=== PATIENT | female | born 1935 | race Caucasian/White ===

== ENCOUNTER 2017-06-27 17:29 | Emergency (ER) | payer MEDICARE, OTHER ==
[~2017-06-27] VITALS: Ht 167.6 cm; Wt 61.8 kg
[2017-06-27 17:39] VITALS: TEMP 97.7
[2017-06-27 18:16] LABS: BASO # 0.1 (0.0-0.2); BASO % 0.4 % (0.0-2.0); EOS # 0.5 (0.0-0.7); EOS % 4.1 % (0-4.0); GRAN # 7.5 (1.4-6.5); GRAN % 66.9 % (42.2-75.2); HEMATOCRIT 33.4 % (37.0-47.0); HEMOGLOBIN 11.1 g/dl (12.5-16.0); LYMPH # 2.4 (1.2-3.4); LYMPH % 21.3 % (20.0-51.0); MEAN CELL VOLUME 91 fl (80.0-100.0); MEAN CORPUSCULAR HEMOGLOBIN 30 pg (27.0-31.0); MEAN CORPUSCULAR HGB CONC 33 g/dl (33.0-37.0); MEAN PLATELET VOLUME 9.4 fl (7.4-10.4); MONO # 0.8 (0.1-0.6); PLATELET COUNT 203 K/mm3 (130-400); RED BLOOD COUNT 3.66 M/mm3 (4.10-5.30); REDCELL DISTRIBUTION WIDTH-CV 12.6 % (11.5-14.5)
[2017-06-27] MEDS ORDERED: DESYREL 50MG50 MG PO (18:23)
[2017-06-27] MEDS ORDERED: PRINIVIL10 MG PO (18:25)
[2017-06-27] MEDS ORDERED: CALCIUM 600/VIT1 CA1 PO (18:25)
[2017-06-27] MEDS ORDERED: LOPRESSOR 225 MG/TAB PO (18:26)
[2017-06-27] MEDS ORDERED: MULTI VITAMINS1 TAB PO (18:26)
[2017-06-27] MEDS ORDERED: ZYRTEC 10MG10 MG PO (18:26)
[2017-06-27 18:27] LABS: ALBUMIN 3.3 gm/dL (3.5-5.0); BILIRUBIN,TOTAL 0.5 mg/dL (0.0-1.0); C-REACTIVE PROTEIN 7.1 mg/dL (0.0-0.9); CALCIUM 8.7 mg/dL (8.4-10.2); CREATININE, serum 0.64 mg/dL (0.52-1.25); POTASSIUM 4.4 mmol/L (3.4-5.0); TOTAL PROTEIN 6.4 gm/dL (6.4-8.2)
[2017-06-27] MEDS ORDERED: MAPAP MULTI-SYM1 TA1 PO (18:27)
[2017-06-27] MEDS ORDERED: KLONOPIN 1MG1 MG PO (18:27)
[2017-06-27] MEDS ORDERED: ASPIRIN 32325 MG/TAB PO (18:27)
[2017-06-27] MEDS ORDERED: STOOL SOFTENER100 M2 PO (18:28)
[2017-06-27] MEDS ORDERED: NAPROSYN500 MG PO (18:28)
[2017-06-27] MEDS ORDERED: MELAT3MGTAB (18:28)
[2017-06-27 18:51] LABS: COLLECTION METHOD CLEAN CATCH
[2017-06-27 18:57] LABS: MUCOUS Present /lpf; PH 6 (5-8); SQUAMOUS EPITHELIAL 0-2 /hpf; URINE APPEARANCE Clear; URINE BACTERIA None Seen /hpf; URINE BILIRUBIN Negative (NEGATIVE); URINE BLOOD Negative (NEGATIVE); URINE COLOR Yellow; URINE GLUCOSE Negative (NEGATIVE); URINE KETONE Negative (NEGATIVE); URINE LEUKOCYTE ESTERASE Negative (NEGATIVE); URINE NITRATE Negative (NEGATIVE); URINE PROTEIN(semi-quant) Negative (NEGATIVE); URINE UROBILINOGEN Negative (NEGATIVE)
[2017-06-27 19:26] VITALS: BP 170/78; PULSE 72
[2017-06-27] MEDS ORDERED: NORCO 325 MG-51 TAB PO (19:29)
== END 2017-06-27 19:42 | disposition home or self-care (01) ==
LOC: COL.ER 17:29
PROVIDERS: Family Medicine
DX: R53.1 Weakness (principal); T40.4X5A Adverse effect of other synthetic narcotics, initial encounter; I10 Essential (primary) hypertension; Z96.651 Presence of right artificial knee joint
CPT/HCPCS: J2405; J7030; Q9967

== ENCOUNTER 2020-02-25 22:10 | Emergency (ER) | payer MEDICARE, OTHER ==
[~2020-02-25] VITALS: Ht 167.6 cm; Wt 65.9 kg
[~2020-02-25 22:10] MED LIST: ASPIRIN 32325 MG/TAB PO; CALCIUM 600/VIT1 CA1 PO; DESYREL 50MG50 MG PO; KLONOPIN 1MG1 MG PO; LOPRESSOR 225 MG/TAB PO; MAPAP MULTI-SYM1 TA1 PO; MELAT3MGTAB; MULTI VITAMINS1 TAB PO; NAPROSYN500 MG PO; NORCO 325 MG-51 TAB PO; PRINIVIL10 MG PO; STOOL SOFTENER100 M2 PO; ZYRTEC 10MG10 MG PO
[2020-02-25 22:19] VITALS: TEMP 97.5
[2020-02-25 22:57] LABS: BASO # 0.1 (0.0-0.2); BASO % 1.3 % (0.0-2.0); EOS # 0.3 (0.0-0.7); EOS % 5.2 % (0-4.0); GRAN % 48.3 % (42.2-75.2); HEMATOCRIT 41.7 % (37.0-47.0); HEMOGLOBIN 13.9 g/dl (12.5-16.0); INR 0.9 (0.8-3.0); LYMPH # 2.3 (1.2-3.4); LYMPH % 36.6 % (20.0-51.0); MEAN CELL VOLUME 94 fl (80.0-100.0); MEAN CORPUSCULAR HEMOGLOBIN 31 pg (27.0-31.0); MEAN CORPUSCULAR HGB CONC 33 g/dl (33.0-37.0); MEAN PLATELET VOLUME 9.3 fl (7.4-10.4); MONO # 0.5 (0.1-0.6); MONO % 8.4 % (1.7-9.3); PLATELET COUNT 211 K/mm3 (130-400); PROTHROMBIN TIME 10.2 SECONDS (9.7-12.8); RED BLOOD COUNT 4.44 M/mm3 (4.10-5.30); REDCELL DISTRIBUTION WIDTH-CV 12.3 % (11.5-14.5)
[2020-02-25 23:04] LABS: ALANINE AMINOTRANSFERASE 36 U/L (4-34); ALBUMIN 4.5 gm/dL (3.5-5.0); ALKALINE PHOSPHATASE 131 U/L (50-136); ANION GAP 9 mmol/L (7-16); AST,SGOT 40 U/L (15-37); BILIRUBIN,TOTAL 0.5 mg/dL (0.0-1.0); BLOOD UREA NITROGEN 16 mg/dL (7-17); CALCIUM 9.9 mg/dL (8.4-10.2); CARBON DIOXIDE 28 mmol/L (22-30); CHLORIDE 100 mmol/L (98-107); CREATINE KINASE 139 U/L (30-135); GLUCOSE 100 mg/dL (74-106); LIPASE 130 U/L (23-300); SODIUM 137 mmol/L (137-145); TOTAL PROTEIN 7.7 gm/dL (6.4-8.2)
[2020-02-25 23:17] LABS: TROPONIN-I < 0.012 ng/mL (0.000-0.035)
[2020-02-26 00:33] VITALS: BP 160/91; PULSE 62
== END 2020-02-26 00:42 | disposition home or self-care (01) ==
LOC: COL.ER 22:10
PROVIDERS: Emergency Medicine
DX: K21.9 Gastro-esophageal reflux disease without esophagitis (principal); I10 Essential (primary) hypertension; Z86.73 Personal history of transient ischemic attack (TIA), and cerebral infarction without residual deficits; Z90.710 Acquired absence of both cervix and uterus; Z88.0 Allergy status to penicillin; Z88.6 Allergy status to analgesic agent; Z88.8 Allergy status to other drugs, medicaments and biological substances; Z79.82 Long term (current) use of aspirin

== ENCOUNTER 2021-02-25 10:36 | Emergency (ER) | payer MEDICARE, OTHER ==
[~2021-02-25] VITALS: Ht 167.6 cm; Wt 63.6 kg
[2021-02-25 10:48] VITALS: TEMP 97
[2021-02-25 11:23] LABS: BASO # 0.1 K/mm3 (0.0-0.2); EOS # 0.3 K/mm3 (0.0-0.7); EOS % 5.2 % (0.0-4.0); GRAN # 3.7 K/mm3 (1.4-6.5); GRAN % 63.1 % (42.2-75.2); HEMATOCRIT 38.6 % (37.0-47.0); LYMPH # 1.3 K/mm3 (1.2-3.4); LYMPH % 22.3 % (20.0-51.0); MEAN CELL VOLUME 90 fl (80.0-100.0); MEAN CORPUSCULAR HEMOGLOBIN 30 pg (27-31); MEAN CORPUSCULAR HGB CONC 34 g/dl (33.0-37.0); MONO # 0.5 K/mm3 (0.1-0.6); MONO % 7.9 % (1.7-9.3); PLATELET COUNT 252 K/mm3 (130-400); RED BLOOD COUNT 4.29 M/mm3 (4.10-5.30)
[2021-02-25 11:40] LABS: ALBUMIN 3.7 gm/dL (3.4-4.8); BILIRUBIN,TOTAL 0.5 mg/dL (0.2-1.2); C-REACTIVE PROTEIN 0.86 mg/dL (0.00-0.50); CREATININE, serum 0.71 mg/dL (0.57-1.11); POTASSIUM 4.3 mmol/L (3.5-4.5)
[2021-02-25 11:51] LABS: PROTHROMBIN TIME 11.2 SECONDS (9.7-12.8)
[2021-02-25 12:54] LABS: COLLECTION METHOD CLEAN CATCH
[2021-02-25 13:03] LABS: MUCOUS Present (NOT PRESENT); PH 7 (5-8); SQUAMOUS EPITHELIAL 0-2 /hpf (0-10); URINE APPEARANCE Clear (CLEAR/HAZY); URINE BACTERIA Rare /hpf (NONE SEEN); URINE BILIRUBIN Negative (NEGATIVE); URINE BLOOD Negative (NEGATIVE); URINE COLOR Yellow (YELLOW); URINE GLUCOSE Negative (NEGATIVE); URINE KETONE Trace (NEGATIVE); URINE LEUKOCYTE ESTERASE Negative (NEGATIVE); URINE NITRATE Negative (NEGATIVE); URINE PROTEIN(semi-quant) Negative (NEGATIVE); URINE RBC 0-2 /hpf (0-2); URINE UROBILINOGEN Negative (NEGATIVE)
[2021-02-25 13:45] VITALS: BP 170/88; PULSE 59
== END 2021-02-25 13:45 | disposition home or self-care (01) ==
LOC: COL.ER 10:36
PROVIDERS: Family Medicine
DX: R20.2 Paresthesia of skin (principal); I10 Essential (primary) hypertension; Z86.73 Personal history of transient ischemic attack (TIA), and cerebral infarction without residual deficits; Z79.899 Other long term (current) drug therapy

== ENCOUNTER → 2021-03-22 | Outpatient (CLI) | payer MEDICARE, OTHER | LOC: COL.VAS 12:50 | DX: G45.9 Transient cerebral ischemic attack, unspecified (principal); I51.7 Cardiomegaly; I34.0 Nonrheumatic mitral (valve) insufficiency ==

== ENCOUNTER 2022-12-18 12:59 | Outpatient (CLI) | payer MEDICARE, OTHER ==
[2022-12-18 13:30] VITALS: BP 159/75; PULSE 76; TEMP 98
[2022-12-18] MEDS ORDERED: ASPIRIN 81M81 MG/TA2 PO (14:24)
[2022-12-18] MEDS ORDERED: PRILOSEC 20MG20 MG PO (14:24)
[2022-12-18] MEDS ORDERED: VITAMIN C500 MG PO (14:25)
[2022-12-18] MEDS ORDERED: FERROUS SU325 MG/TAB PO (14:26)
[2022-12-18] MEDS ORDERED: PRESERVISION1 SGL PO (14:27)
--- NOTE | 2022-12-18 14:27 | NUR ---
pt tolerated prolia injection well. vital signs remained within normal limits and pt ambulates independently to [facility] upon discharge. pt free from acute concerns and complaints.
== END 2022-12-18 14:28 | disposition home or self-care (01) ==
LOC: EUO 12:59
DX: M81.0 Age-related osteoporosis without current pathological fracture (principal)
CPT/HCPCS: J0897

== ENCOUNTER 2023-07-19 19:46 | Observation (INO) | payer MEDICARE, OTHER ==
[~2023-07-19] VITALS: Ht 167.6 cm; Wt 65.0 kg
[~2023-07-19 19:46] MED LIST changes: +ASPIRIN 81M81 MG/TA2 PO; +FERROUS SU325 MG/TAB PO; +PRESERVISION1 SGL PO; +PRILOSEC 20MG20 MG PO; -PRINIVIL10 MG PO; +PRINIVIL20 MG PO; +PROLIA60 MG/ML SQ; +VITAMIN C500 MG PO
[2023-07-19 20:10] LABS: BASO # 0.1 K/mm3 (0.0-0.2); BASO % 0.5 % (0.0-2.0); EOS # 0.2 K/mm3 (0.0-0.7); EOS % 1.6 % (0.0-4.0); GRAN # 8.4 K/mm3 (1.4-6.5); GRAN % 75.7 % (42.2-75.2); HEMATOCRIT 43.9 % (37.0-47.0); HEMOGLOBIN 14.9 g/dl (12.5-16.0); LYMPH # 1.9 K/mm3 (1.2-3.4); LYMPH % 16.9 % (20.0-51.0); MEAN CELL VOLUME 92 fl (80.0-100.0); MEAN CORPUSCULAR HEMOGLOBIN 31 pg (27-31); MEAN CORPUSCULAR HGB CONC 34 g/dl (33.0-37.0); MEAN PLATELET VOLUME 8.9 fl (7.4-10.4); MONO # 0.6 K/mm3 (0.1-0.6); MONO % 5.1 % (1.7-9.3); PLATELET COUNT 204 K/mm3 (130-400); RED BLOOD COUNT 4.76 M/mm3 (4.10-5.30); REDCELL DISTRIBUTION WIDTH-CV 12.5 % (11.5-14.5)
[2023-07-19] MEDS ORDERED: LR 1,000 ML IV ONE (20:15)
[2023-07-19] MEDS ORDERED: Ondansetron 4 MG/2 ML VIAL IV ONE (20:15)
[2023-07-19 20:30] LABS: BILIRUBIN,TOTAL 0.3 mg/dL (0.2-1.2); C-REACTIVE PROTEIN 0.18 mg/dL (0.00-0.50); CALCIUM 9.6 mg/dL (8.4-10.2); CREATININE, serum 0.88 mg/dL (0.57-1.11); POTASSIUM 4.3 mEq/L (3.5-4.5); TOTAL PROTEIN 7.4 g/dl (6.2-8.1)
[2023-07-19] MEDS ORDERED: Iohexol 300 - 100 ML VIAL IV ONE (21:10)
[2023-07-19] MEDS ORDERED: NS 50 ML IV ONE (21:11)
[2023-07-19 21:46] LABS: COLLECTION METHOD CLEAN CATCH
[2023-07-19 21:55] LABS: URINE APPEARANCE CLEAR (CLEAR/HAZY); URINE BLOOD NEGATIVE (NEGATIVE); URINE COLOR YELLOW (YELLOW); URINE GLUCOSE NEGATIVE (NEGATIVE); URINE KETONE NEGATIVE (NEGATIVE); URINE NITRATE NEGATIVE (NEGATIVE); URINE PROTEIN(semi-quant) NEGATIVE (NEGATIVE); URINE UROBILINOGEN 0.2 E.U/dL (0.2-1.0)
[2023-07-19] MEDS ORDERED: hydrALAZINE 20 MG/ML 1 ML VIAL IV ONE (22:30)
[2023-07-19] MEDS ORDERED: hydrALAZINE 20 MG/ML 1 ML VIAL IV PRN (23:45)
[2023-07-19] MEDS ORDERED: Acetaminophen 325 MG TAB PO PRN (23:45)
[2023-07-19] MEDS ORDERED: Ondansetron 4 MG/2 ML VIAL IV PRN (23:45)
[2023-07-19] MEDS ORDERED: LR 1,000 ML IV SCH (23:45)
[2023-07-20] VITALS (11 sets, daily range): BP systolic 116–178; BP diastolic 68–87; PULSE 66–98; TEMP 97.5–98.2
[2023-07-20] MEDS ORDERED: metroNIDAZOLE 100 ML IV SCH
--- NOTE | 2023-07-20 01:40 | NUR ---
PATIENT ARRIVED TO MEDICAL FLOOR AT APPROX 0130. PATIENT AMBULATED TO BATHROOM THEN TO BED. PATIENT SAID SHE HAD A LOOSE BM, BUT DID NOT SEE ANY BLOOD. PATIENT IS ALERT AND ORIENTED, AND SAID SHE BEGAN TO HAVE PAIN IN LOWER ABD AN HOUR AFTER EATING AT [facility] WITH HER DAUGHTER. PATIENT ANSWERED ALL QUESTIONS. ADMISSION ASSESSMENT COMPLETE. NO SKIN ISSUES NOTED. CIPRO INFUSING PER MAR VIA IV TO RFA. PATIENT DENIES PAIN, BUT STATES ABD FEELS IRRITATED.
--- NOTE | 2023-07-20 02:52 | NUR ---
PATIENT IS INDEPENDENT AT HOME AND DOES NOT USE ANY ASSISTIVE DEVICES. THIS NURSE EDUCATED PATIENT TO USE CALL LIGHT WHEN NEEDING TO GET UP B/C OF THE IV POLE. PATIENT VERBALIZED UNDERSTANDING. CALL LIGHT WITHIN REACH.
[2023-07-20] MEDS ORDERED: Metoprolol Tartrate 25 MG TAB PO SCH (03:05)
[2023-07-20] MEDS ORDERED: clonazePAM 1 MG TAB PO SCH (03:06)
--- NOTE | 2023-07-20 03:06 | NUR ---
PATIENT CALLED THIS NURSE AND COMPLAINED OF SHAKINESS. PATIENT APPEARS TO BE ANXIOUS. STATED SHE TAKES KLONOPIN AT HS. THIS NURSE NOTIFIED GAB MILLAN. SEE NEW ORDERS
--- NOTE | 2023-07-20 04:00 | NUR ---
PATIENT NOT SLEEPING YET BUT STATES SHE IS FEELING BETTER SINCE KLONOPIN DOSE.
[2023-07-20 07:10] LABS: BASO # 0.1 K/mm3 (0.0-0.2); BASO % 0.5 % (0.0-2.0); EOS # 0.1 K/mm3 (0.0-0.7); EOS % 0.5 % (0.0-4.0); GRAN # 8.7 K/mm3 (1.4-6.5); GRAN % 82.1 % (42.2-75.2); HEMATOCRIT 38.1 % (37.0-47.0); HEMOGLOBIN 13.1 g/dl (12.5-16.0); LYMPH # 1.1 K/mm3 (1.2-3.4); LYMPH % 10.5 % (20.0-51.0); MEAN CELL VOLUME 91 fl (80.0-100.0); MEAN CORPUSCULAR HEMOGLOBIN 31 pg (27-31); MEAN CORPUSCULAR HGB CONC 34 g/dl (33.0-37.0); MEAN PLATELET VOLUME 9.4 fl (7.4-10.4); MONO # 0.6 K/mm3 (0.1-0.6); PLATELET COUNT 179 K/mm3 (130-400); RED BLOOD COUNT 4.21 M/mm3 (4.10-5.30); REDCELL DISTRIBUTION WIDTH-CV 12.6 % (11.5-14.5)
[2023-07-20 07:25] LABS: ERYTHROCYTE SEDIMENTATION RATE 2 mm/hr (0-30)
[2023-07-20 07:29] LABS: C-REACTIVE PROTEIN 0.38 mg/dL (0.00-0.50); CALCIUM 8.8 mg/dL (8.4-10.2); CREATININE, serum 0.7 mg/dL (0.57-1.11); POTASSIUM 3.9 mEq/L (3.5-4.5)
[2023-07-20] MEDS ORDERED: Lisinopril 20 MG TAB PO SCH (09:00)
--- NOTE | 2023-07-20 09:35 | NUR ---
Patient assisted to the restroom, states she does not have a BM but just blood with clots, she throw it away before let me check. Pt aware we need a stool sample. Alert and oriented x 4, denies any pain, just discomfort and cramps in her abdomen. Assessment completed, meds given, HTN overnight. States she did not took his medications last night. No furthe needs at this time. Call light within reach. Daughter at bedsice.
[2023-07-20 13:59] LABS: CLOSTRIDIUM DIFF A/B NEG
--- NOTE | 2023-07-20 14:04 | NUR ---
Plastic Surgery Specialist met with patient and her daughter, Suzette (ph#[phone]) at bedside to complete initial intake. Patient lives alone in [place] and advised she moved here about four years ago. Patient also stated Suzette lives about a mile away from her and she also has grandchildren nearby. Patient sees Dr. Rutherford for primary care and gets her medications from [facility] on [address] with no difficulties. Patient does not use any DME and is independent with [employer], including driving however patient stated she does not drive at night. Patient advised her daughter, Suzette is [employer]. Patient plans to return home at time of discharge and is hoping it's sooner than later. Discharge Plan: Home
--- NOTE | 2023-07-20 19:39 | NUR ---
PATIENT SITTING UP IN BED EATING DINNER. ALERT AND ORIENTED. DAUGHTER AT BEDSIDE. PATIENT REQUESTING HEATING PAD FOR HER BACK PAIN. SHIFT ASSESSMENT COMPLETE. PATIENT DENIES FURTHER NEEDS OR CONCERNS AT THIS TIME. CALL LIGHT WITHIN REACH.
--- NOTE | 2023-07-20 21:00 | NUR ---
PATIENT REPORTS FORMED STOOL WITHOUT BLOOD. DENIES ABDOMINAL PAIN, DISCOMFORT, OR NAUSEA.
[2023-07-21 03:10] VITALS: BP 146/68; PULSE 75; TEMP 97.5
[2023-07-21 04:55] VITALS: BP_SYST 146
[2023-07-21 07:31] LABS: BASO % 0.3 % (0.0-2.0); EOS # 0.2 K/mm3 (0.0-0.7); EOS % 1.9 % (0.0-4.0); GRAN # 6.7 K/mm3 (1.4-6.5); GRAN % 73.3 % (42.2-75.2); HEMATOCRIT 40.4 % (37.0-47.0); HEMOGLOBIN 13.6 g/dl (12.5-16.0); LYMPH # 1.7 K/mm3 (1.2-3.4); LYMPH % 18.4 % (20.0-51.0); MEAN CELL VOLUME 92 fl (80.0-100.0); MEAN CORPUSCULAR HEMOGLOBIN 31 pg (27-31); MEAN CORPUSCULAR HGB CONC 34 g/dl (33.0-37.0); MEAN PLATELET VOLUME 9.4 fl (7.4-10.4); MONO # 0.5 K/mm3 (0.1-0.6); MONO % 5.9 % (1.7-9.3); PLATELET COUNT 182 K/mm3 (130-400); RED BLOOD COUNT 4.38 M/mm3 (4.10-5.30); REDCELL DISTRIBUTION WIDTH-CV 12.9 % (11.5-14.5)
[2023-07-21 07:50] VITALS: BP 163/73; PULSE 72; TEMP 97.7
[2023-07-21 07:55] LABS: CALCIUM 8.8 mg/dL (8.4-10.2); CREATININE, serum 0.71 mg/dL (0.57-1.11); MAGNESIUM 1.7 mg/dL (1.6-2.6); POTASSIUM 3.6 mEq/L (3.5-4.5)
[2023-07-21 08:48] VITALS: BP_SYST 163
[2023-07-21] MEDS ORDERED: CIPRO 500MG TA500 MG PO (09:59)
[2023-07-21] MEDS ORDERED: FLAGYL500 MG PO (09:59)
[2023-07-21 11:25] VITALS: BP 152/78; PULSE 63; TEMP 97.8
[2023-07-21] MEDS ORDERED: Ferrous Sulfate 325 MG TAB PO SCH (12:00)
--- NOTE | 2023-08-17 12:04 | NUR ---
DOWNTIME NOTE: An Electronic Health Record (EHR) downtime event occurred during this patient's care. For legal medical record information generated during the downtime period, please reference the patient's legal medical record. Paper or scanned documentation has been incorporated into the legal medical record which is maintained in accordance with Health Information Management (HIM) and record retention policies.
== END 2023-07-21 12:45 | disposition home or self-care (01) ==
LOC: COL.ER 19:46 → MEDICAL 23:48
PROVIDERS: Family Medicine; Physician Assistant; ADMIT Internal Medicine
DX: K52.9 Noninfective gastroenteritis and colitis, unspecified (principal); I10 Essential (primary) hypertension; Z79.899 Other long term (current) drug therapy
CPT/HCPCS: G0378; J0360; J0744; J1836; J3475; J7120; Q9967

== ENCOUNTER → 2023-10-22 | Outpatient (CLI) | payer MEDICARE ==
[~2023-10-22] MED LIST changes: +CIPRO 500MG TA500 MG PO; +FLAGYL500 MG PO
== END ==
LOC: MC.RAD 09:02
DX: Z12.31 Encounter for screening mammogram for malignant neoplasm of breast (principal)

== ENCOUNTER 2023-12-28 15:48 | Outpatient (CLI) | payer MEDICARE, OTHER ==
[~2023-12-28] VITALS: Ht 167.6 cm; Wt 63.4 kg
[2023-12-28] MEDS ORDERED: Denosumab 60 MG/ML SYRINGE SQ ONE (16:00)
[2023-12-28 16:15] VITALS: BP 185/97; PULSE 59; TEMP 97.6
[2023-12-28] MEDS ORDERED: CALCIUM 600 PLU1 TAB PO (16:21)
--- NOTE | 2023-12-28 16:36 | NUR ---
Pt tolerated prolia without issue. She is escorted out to elevator. Gait steady, and she is free of complaints at discharge.
== END 2023-12-28 16:37 | disposition home or self-care (01) ==
LOC: EUO 15:48
DX: M81.0 Age-related osteoporosis without current pathological fracture (principal)
CPT/HCPCS: J0897